=== PATIENT | male | born 1980 ===

== ENCOUNTER 2017-09-02 20:00 | Emergency (ER) | payer OTHER ==
[~2017-09-02] VITALS: Ht 182.9 cm; Wt 95.2 kg
[2017-09-02] MEDS ORDERED: Tylenol325 MG PO (21:40)
== END 2017-09-02 23:36 | disposition home or self-care (01) ==
LOC: EDBD 20:00 → ER 20:00
DX: S00.03XA Contusion of scalp, initial encounter (principal); S20.211A Contusion of right front wall of thorax, initial encounter; S00.211A Abrasion of right eyelid and periocular area, initial encounter; S05.92XA Unspecified injury of left eye and orbit, initial encounter; H02.845 Edema of left lower eyelid; H02.844 Edema of left upper eyelid; Y04.2XXA Assault by strike against or bumped into by another person, initial encounter
CPT/HCPCS: 70110; 70150; 70450; 70486; 99284